=== PATIENT | female | born 1955 | race African-American/Black ===

== ENCOUNTER 2016-09-29 19:48 | Emergency (ER) | payer MEDICARE, MEDICAID ==
[~2016-09-29] VITALS: Ht 157.5 cm; Wt 52.0 kg
[~2016-09-29 19:48] MED LIST: ALBU2.5V13 NEB; AMLO5TAB4 PO; ATOR20TA65 PO; DOCU-150 PO; FLUT1DIS3 INH; LOSA50TA20 PO; MONT10TA21 PO; OMEP20TA80 PO; PROAIR INH; TIOT18CA3 INH; TOLT2CAP7 PO
[2016-09-29] MEDS ORDERED: ALBUTEROL (0.083%) 2.5MG/3ML NEB HHN STA (19:57)
[2016-09-29] MEDS ORDERED: METHYLPREDNISOLONE SOD SUCC 125 MG/2 ML VIAL IV STA (19:57)
[2016-09-29] MEDS ORDERED: IPRATROPIUM BROMIDE (0.02%) 0.5MG/2.5ML NEB HHN STA (19:57)
[2016-09-29] MEDS ORDERED: ALBUTEROL (0.5%) 2.5MG/0.5ML NEB HHN ONE (20:13)
[2016-09-29 21:22] LABS: BASOPHILS % 0.8 % (0.0-2.0); EOSINOPHILS % 7.2 % (0.0-5.0); HEMATOCRIT. 46.4 % (36.0-48.0); HEMOGLOBIN. 15.3 g/dL (12.0-16.0); LYMPHOCYTES % 51.6 % (20.0-50.0); MEAN CORPUSCULAR HEMOGLOBIN 28.9 pg (28.0-32.0); MEAN CORPUSCULAR VOLUME 87.5 fL (81.0-99.0); MEAN PLATELET VOLUME 8.4 fl (7.4-10.4); MONOCYTES % 4.4 % (2.0-8.0); PLATELET 348 x1000/uL (130-400); RED CELL DISTRIBUTION WIDTH 15.5 % (11.6-14.6); WHITE BLOOD COUNT 21.3 x1000/uL (4.5-11.0)
[2016-09-29 21:30] LABS: INR 1.1; PROTHROMBIN TIME 11.4 sec
[2016-09-29 21:38] LABS: ALANINE AMINOTRANSFERASE 25 IU/L (13-61); ALBUMIN 3.7 g/dL (3.4-5.0); ANION GAP 13; CALCIUM 8.7 mg/dL (8.5-10.1); CARBON DIOXIDE 25 mEq/L (21-32); CHLORIDE 108 mEq/L (98-107); INDEX HEMOLYSI 1 (1-3); INDEX ICTERIC 1 (1-4); INDEX LIPEMIC 1 (1-3); NT PRO B-TYPE NATRIURETIC PEP 978 pg/mL (5-125); TROPONIN I < 0.02 ng/mL (0.00-0.04); UREA NITROGEN BLOOD 10 mg/dL (7-21); eGFR > 60 mL/min (>60)
[2016-09-29 22:05] VITALS: BP 180/93
== END 2016-09-29 23:46 | disposition home or self-care (01) ==
LOC: ER 19:54
DX: J45.901 Unspecified asthma with (acute) exacerbation (principal); J44.9 Chronic obstructive pulmonary disease, unspecified; I10 Essential (primary) hypertension; Z88.0 Allergy status to penicillin
CPT/HCPCS: 36415; 71010; 80053; 83880; 84484; 85025; 85610; 93005; 94644; 96374; 99285; J2930; J7611

== ENCOUNTER 2016-11-06 15:31 | Inpatient (IN) | payer MEDICARE, MEDICAID ==
[~2016-11-06] VITALS: Ht 172.7 cm; Wt 59.0 kg
[2016-11-06] MEDS ORDERED: IPRATROPIUM BROMIDE (0.02%) 0.5MG/2.5ML NEB HHN STA (16:36)
[2016-11-06] MEDS ORDERED: ALBUTEROL (0.083%) 2.5MG/3ML NEB HHN STA (16:36)
[2016-11-06] MEDS ORDERED: ASPIRIN 81MG TABLET PO STA (16:36)
[2016-11-06] MEDS ORDERED: NITROGLYCERIN 0.4MG TABLET SL SL PRN (16:45)
[2016-11-06] MEDS ORDERED: MAGNESIUM 2 G PREMIX 50 ML IV ONE (16:45)
[2016-11-06] MEDS ORDERED: ALBUTEROL (0.5%) 2.5MG/0.5ML NEB HHN ONE ×2 (16:53→18:15)
[2016-11-06] MEDS ORDERED: IPRATROPIUM BROMIDE (0.02%) 0.5MG/2.5ML NEB ONE (16:54)
[2016-11-06] MEDS ORDERED: ALBUTEROL (0.083%) 2.5MG/3ML NEB ONE ×2 (16:54→18:23)
[2016-11-06 17:07] LABS: BASOPHILS % 1.3 % (0.0-2.0); HEMATOCRIT. 51.2 % (36.0-48.0); HEMOGLOBIN. 16.7 g/dL (12.0-16.0); LYMPHOCYTES % 37.5 % (20.0-50.0); MEAN CORPUSCULAR HEMOGLOBIN 28.5 pg (28.0-32.0); MEAN CORPUSCULAR HGB CONC 32.5 g/dL (31.0-37.0); MEAN CORPUSCULAR VOLUME 87.5 fL (81.0-99.0); MEAN PLATELET VOLUME 8.2 fl (7.4-10.4); NEUTROPHILS % 48.2 % (40.0-76.0); PLATELET 311 x1000/uL (130-400); RED BLOOD CELL COUNT 5.85 mill/uL (4.2-5.4); RED CELL DISTRIBUTION WIDTH 15.5 % (11.6-14.6); WHITE BLOOD COUNT 11.6 x1000/uL (4.5-11.0)
[2016-11-06 17:15] LABS: ALBUMIN 3.4 g/dL (3.4-5.0); ANION GAP 12; CALCIUM 9.7 mg/dL (8.5-10.1); CARBON DIOXIDE 28 mEq/L (21-32); CHLORIDE 108 mEq/L (98-107); INDEX HEMOLYSI 1 (1-3); INDEX ICTERIC 1 (1-4); INDEX LIPEMIC 1 (1-3); PARTIAL THROMBOPLASTIN TIME 26.4 sec (24.0-34.0); PROTHROMBIN TIME 10.9 sec; UREA NITROGEN BLOOD 16 mg/dL (7-21)
[2016-11-06 17:21] LABS: ALANINE AMINOTRANSFERASE 17 IU/L (13-61); eGFR > 60 mL/min (>60)
[2016-11-06 17:22] LABS: NT PRO B-TYPE NATRIURETIC PEP 881 pg/mL (5-125); TROPONIN I < 0.02 ng/mL (0.00-0.04)
[2016-11-06 18:10] LABS: BG BASE EXCESS -2.6 mmol/L (-2.0-2.0); BG CARBOXYHEMOGLOBIN 0.8 % (0.5-1.5); BG DEOXYHEMOGLOBIN 5.3 % (0.0-5.0); BG FRACTION INSPIRED OXYGEN 28; BG HCO3 ACT 21.9 mmol/L (22.0-26.0); BG METHEMOGLOBIN 0.3 % (0.0-1.5); BG OXYGEN SATURATION 94.6 % (92.0-98.5); BG OXYHEMOGLOBIN 93.6 % (94.0-97.0); BG PCO2 37.5 mmHg (35.0-45.0); BG PH 7.385 (7.350-7.450); BG PO2 69.7 mmHg (75.0-100.0); BG SAMPLE SITE RIGHT BRACHIAL; BG TOTAL HEMOGLOBIN 16.4 g/dL (12.0-18.0); BG VENT MODE NASAL CANNULA
[2016-11-06] MEDS ORDERED: METHYLPREDNISOLONE SOD SUCC 125 MG/2 ML VIAL IV STA (20:50)
[2016-11-06 22:00] VITALS: BP 181/133
[2016-11-06] MEDS ORDERED: ASPI325T2 PO (22:12)
[2016-11-06] MEDS ORDERED: CHOL100046 PO (22:12)
[2016-11-06] MEDS ORDERED: PRED5TAB48 PO (22:12)
[2016-11-06] MEDS ORDERED: ONDANSETRON HCL 4MG/2ML VIAL IV PRN (22:30)
[2016-11-06] MEDS ORDERED: MAGNESIUM/ALUMINUM HYDROXIDE/SIMETHICONE 30ML UDC PO PRN (22:30)
[2016-11-06] MEDS ORDERED: MAGNESIUM HYDROXIDE 400MG/5ML 30ML UDC PO PRN (22:30)
[2016-11-06] MEDS ORDERED: CLONIDINE 0.1MG TABLET PO PRN (22:30)
[2016-11-06] MEDS ORDERED: DIPHENHYDRAMINE 50MG/ML VIAL IV PRN (22:30)
[2016-11-06] MEDS ORDERED: IPRATROPIUM/ALBUTEROL 0.5-3(2.5)MG/3ML NEB INH PRN (22:30)
[2016-11-06] MEDS ORDERED: TEMAZEPAM 15MG CAPSULE PO PRN (22:30)
[2016-11-06] MEDS: METHYLPREDNISOLONE SOD SUCC 125 MG/2 ML VIAL IV SCH (22:54)
[2016-11-06] MEDS: ENOXAPARIN 40MG/0.4ML SYR SUBCUT SCH (22:54)
[2016-11-06 23:32] VITALS: BP 181/113
[2016-11-06] MEDS: ACETAMINOPHEN 325MG TABLET PO PRN (23:32)
[2016-11-07] VITALS: BP 120/85
[2016-11-07] MEDS: IPRATROPIUM/ALBUTEROL 0.5-3(2.5)MG/3ML NEB HHN SCH ×7 (00:06→23:23)
[2016-11-07 04:00] VITALS: BP 110/78
[2016-11-07] MEDS: SODIUM CHLORIDE 0.9% INJ 3ML FLUSH IVF SCH ×3 (05:30→21:51)
[2016-11-07] MEDS: ACETAMINOPHEN 325MG TABLET PO PRN ×2 (05:30→22:39)
[2016-11-07] MEDS: METHYLPREDNISOLONE SOD SUCC 125 MG/2 ML VIAL IV SCH (05:30)
[2016-11-07 08:00] VITALS: BP 138/102
[2016-11-07] MEDS ORDERED: GUAIFENESIN 600MG ER TABLET PO SCH (09:00)
[2016-11-07] MEDS: OXYBUTYNIN CHLORIDE 5MG TABLET PO SCH ×2 (09:07→20:48)
[2016-11-07] MEDS: AMLODIPINE 5MG TABLET PO SCH ×2 (09:07→20:49)
[2016-11-07 12:00] VITALS: BP 114/78
[2016-11-07] MEDS: PROMETHAZINE/DEXTROMETHORPHAN 6.25-15MG/5ML BOTTLE 120ML PO PRN ×2 (12:26→20:51)
[2016-11-07] MEDS ORDERED: NICOTINE 21MG PATCH TD NR (14:00)
[2016-11-07 16:00] VITALS: BP 118/83
[2016-11-07 16:38] LABS: T3 FREE 2.02 pg/ml (2.18-3.98); T4 FREE 1.16 ng/dL (0.76-1.46); THYROID STIMULATING HORMONE 0.25 uIU/mL (0.36-3.74)
[2016-11-07] MEDS: MONTELUKAST SODIUM 10MG TABLET PO SCH (16:57)
[2016-11-07 20:00] VITALS: BP 108/73
[2016-11-07] MEDS: ENOXAPARIN 40MG/0.4ML SYR SUBCUT SCH (20:49)
[2016-11-07] MEDS ORDERED: FAMOTIDINE 20MG TABLET PO SCH (21:00)
[2016-11-07] MEDS: BUDESONIDE 0.5MG/2ML NEB HHN SCH (23:23)
[2016-11-08] VITALS: BP 134/83
[2016-11-08 04:00] VITALS: BP 149/93
[2016-11-08] MEDS: IPRATROPIUM/ALBUTEROL 0.5-3(2.5)MG/3ML NEB HHN SCH ×4 (04:15→16:24)
[2016-11-08] MEDS: SODIUM CHLORIDE 0.9% INJ 3ML FLUSH IVF SCH ×2 (05:04→13:22)
[2016-11-08 08:00] VITALS: BP 134/84
[2016-11-08] MEDS ORDERED: NICOTINE 21MG PATCH TD SCH (09:00)
[2016-11-08] MEDS: OXYBUTYNIN CHLORIDE 5MG TABLET PO SCH (09:00)
[2016-11-08] MEDS: AMLODIPINE 5MG TABLET PO SCH (09:00)
[2016-11-08] MEDS: BUDESONIDE 0.5MG/2ML NEB HHN SCH (11:49)
[2016-11-08 12:00] VITALS: BP 132/87
[2016-11-08 15:56] VITALS: BP 129/85
[2016-11-08 16:00] VITALS: BP 129/85
[2016-11-08] MEDS: MONTELUKAST SODIUM 10MG TABLET PO SCH (16:46)
== END 2016-11-08 17:45 | disposition home or self-care (01) | DRG 189 ==
LOC: ER 16:42 → 5WST 18:39
PROVIDERS: ADMIT Internal Medicine; ATTEND Internal Medicine
DX: J96.00 Acute respiratory failure, unspecified whether with hypoxia or hypercapnia (principal); J44.1 Chronic obstructive pulmonary disease with (acute) exacerbation; I50.30 Unspecified diastolic (congestive) heart failure; E03.9 Hypothyroidism, unspecified; I11.0 Hypertensive heart disease with heart failure; K21.9 Gastro-esophageal reflux disease without esophagitis; N32.81 Overactive bladder; E78.00 Pure hypercholesterolemia, unspecified; F17.210 Nicotine dependence, cigarettes, uncomplicated; F41.9 Anxiety disorder, unspecified; Z82.5 Family history of asthma and other chronic lower respiratory diseases; Z86.73 Personal history of transient ischemic attack (TIA), and cerebral infarction without residual deficits; Z88.0 Allergy status to penicillin; Z79.899 Other long term (current) drug therapy
CPT/HCPCS: 36415; 71010; 80053; 82805; 83880; 84439; 84443; 84481; 84484; 85025; 85610; 85730; 93005; 94640; 94664; 96365; 99285; J1650; J2930; J3475; J7611; J7620; J7626

== ENCOUNTER 2018-01-25 00:14 | Emergency (ER) | payer MEDICARE, MEDICAID ==
[~2018-01-25] VITALS: Ht 167.6 cm; Wt 61.0 kg
[2018-01-25] MEDS ORDERED: KETOROLAC 60MG/2ML VIAL IM ONE (02:45)
[2018-01-25 16:35] VITALS: BP 135/82
== END 2018-01-25 19:09 | disposition home or self-care (01) ==
LOC: ER 00:14
DX: S80.02XA Contusion of left knee, initial encounter (principal); J44.9 Chronic obstructive pulmonary disease, unspecified; E78.00 Pure hypercholesterolemia, unspecified; I10 Essential (primary) hypertension; F17.200 Nicotine dependence, unspecified, uncomplicated; Z88.0 Allergy status to penicillin; W01.0XXA Fall on same level from slipping, tripping and stumbling without subsequent striking against object, initial encounter; Y93.89 Activity, other specified; Y92.89 Other specified places as the place of occurrence of the external cause; Y99.8 Other external cause status
CPT/HCPCS: 73564; 96372; 99284; J1885

== ENCOUNTER 2018-06-29 08:49 | Emergency (ER) | payer MEDICAID, MEDICARE ==
[~2018-06-29] VITALS: Ht 172.7 cm; Wt 57.0 kg
[2018-06-29] MEDS ORDERED: CYCL10TA7 MT (09:07)
[2018-06-29] MEDS ORDERED: spiriva (09:07)
[2018-06-29] MEDS ORDERED: albuterol (09:07)
[2018-06-29] MEDS ORDERED: symbicort (09:07)
[2018-06-29] MEDS ORDERED: proair (09:07)
[2018-06-29] MEDS ORDERED: eliquis (09:07)
[2018-06-29] MEDS ORDERED: norvasc (09:07)
[2018-06-29] MEDS ORDERED: IPRATROPIUM BROMIDE (0.02%) 0.5MG/2.5ML NEB HHN STA (09:34)
[2018-06-29] MEDS ORDERED: ALBUTEROL (0.083%) 2.5MG/3ML NEB HHN STA (09:34)
[2018-06-29] MEDS ORDERED: PREDNISONE 20MG TABLET PO STA (09:34)
[2018-06-29] MEDS ORDERED: HYDROCODONE/ACETAMINOPHEN 5/325MG TABLET PO ONE (10:00)
[2018-06-29] MEDS ORDERED: ONDANSETRON 4MG ODT PO ONE (10:00)
[2018-06-29 12:59] VITALS: BP 142/80
== END 2018-06-29 13:01 | disposition home or self-care (01) ==
LOC: ER 09:26
DX: J44.1 Chronic obstructive pulmonary disease with (acute) exacerbation (principal); S20.20XA Contusion of thorax, unspecified, initial encounter; E78.00 Pure hypercholesterolemia, unspecified; I11.0 Hypertensive heart disease with heart failure; I50.9 Heart failure, unspecified; F17.200 Nicotine dependence, unspecified, uncomplicated; F12.10 Cannabis abuse, uncomplicated; Z88.0 Allergy status to penicillin; W01.0XXA Fall on same level from slipping, tripping and stumbling without subsequent striking against object, initial encounter; Y93.89 Activity, other specified; Y92.018 Other place in single-family (private) house as the place of occurrence of the external cause
CPT/HCPCS: 71101; 93005; 94640; 99284; J7512; Q0162; J7611

== ENCOUNTER 2018-10-15 18:29 | Inpatient (IN) | payer MEDICARE, MEDICAID ==
[~2018-10-15] VITALS: Ht 200.7 cm; Wt 60.3 kg
[~2018-10-15 18:29] MED LIST changes: -ALBU2.5V13 NEB; -AMLO5TAB4 PO; -ATOR20TA65 PO; +CYCL10TA7 MT; -DOCU-150 PO; -FLUT1DIS3 INH; -LOSA50TA20 PO; -MONT10TA21 PO; -OMEP20TA80 PO; -PROAIR INH; -TIOT18CA3 INH; -TOLT2CAP7 PO; +albuterol; +eliquis; +norvasc; +proair; +spiriva; +symbicort
[2018-10-15] MEDS ORDERED: METHYLPREDNISOLONE SOD SUCC 125 MG/2 ML VIAL IV STA (19:06)
[2018-10-15] MEDS ORDERED: IPRATROPIUM/ALBUTEROL 0.5-3(2.5)MG/3ML NEB HHN ONE (19:15)
[2018-10-15] MEDS ORDERED: NITROGLYCERIN OINT 1GM/INCH UDPKT TD ONE (19:15)
[2018-10-15] MEDS ORDERED: FUROSEMIDE 40MG/4ML VIAL IV ONE (19:15)
[2018-10-15] MEDS ORDERED: LEVOFLOXACIN 750MG PREMIX 150 ML IV ONE (19:15)
[2018-10-15] MEDS ORDERED: ASPIRIN 81MG TABLET PO ONE (19:15)
[2018-10-15 20:28] LABS: BASOPHILS % 1.2 % (0.0-2.0); EOSINOPHILS % 6.6 % (0.0-5.0); HEMATOCRIT. 51.7 % (36.0-48.0); HEMOGLOBIN. 16.8 g/dL (12.0-16.0); MEAN CORPUSCULAR HEMOGLOBIN 28.9 pg (28.0-32.0); MEAN CORPUSCULAR VOLUME 88.8 fL (81.0-99.0); MEAN PLATELET VOLUME 8.7 fl (7.4-10.4); MONOCYTES % 6.7 % (2.0-8.0); NEUTROPHILS % 30.5 % (40.0-76.0); PLATELET 263 x1000/uL (130-400); RED BLOOD CELL COUNT 5.83 mill/uL (4.2-5.4); RED CELL DISTRIBUTION WIDTH 14.4 % (11.6-14.6)
[2018-10-15 20:33] LABS: CHLORIDE 107 mEq/L (98-107)
[2018-10-15 20:38] LABS: ETHANOL BLOOD < 10 mg/dL
[2018-10-15 21:27] LABS: BG BASE EXCESS 0.3 mmol/L (-2.0-2.0); BG BILEVEL POS AIRWAY PRESSURE 15/5; BG CARBOXYHEMOGLOBIN 0.9 % (0.5-1.5); BG FRACTION INSPIRED OXYGEN 50; BG HCO3 ACT 24.8 mmol/L (22.0-26.0); BG METHEMOGLOBIN 0.5 % (0.0-1.5); BG OXYHEMOGLOBIN 97.6 % (94.0-97.0); BG PCO2 39.6 mmHg (35.0-45.0); BG PH 7.414 (7.350-7.450); BG PO2 161.2 mmHg (75.0-100.0); BG SAMPLE SITE LEFT RADIAL; BG TOTAL HEMOGLOBIN 16.6 g/dL (12.0-18.0); BG VENT MODE MASK - BIPAP; BG VENT RATE 20 set
[2018-10-15] MEDS ORDERED: TEMAZEPAM 15MG CAPSULE PO PRN (22:30)
[2018-10-15] MEDS ORDERED: ACETAMINOPHEN 325MG TABLET PO PRN (22:30)
[2018-10-15] MEDS ORDERED: HYDRALAZINE 20MG/ML VIAL IV PRN (22:30)
[2018-10-15] MEDS ORDERED: DIPHENHYDRAMINE 50MG/ML VIAL IV PRN (22:30)
[2018-10-15] MEDS ORDERED: IPRATROPIUM/ALBUTEROL 0.5-3(2.5)MG/3ML NEB INH PRN (22:30)
[2018-10-15] MEDS ORDERED: LEVOFLOXACIN 500MG PREMIX 100 ML IV SCH (22:30)
[2018-10-15] MEDS ORDERED: GUAIFENESIN 200MG/10ML SUGAR FREE UDC PO PRN (22:30)
[2018-10-15] MEDS ORDERED: ONDANSETRON HCL 4MG/2ML INJ IV PRN (22:30)
[2018-10-15] MEDS ORDERED: MAGNESIUM/ALUMINUM HYDROXIDE/SIMETHICONE 30ML UDC PO PRN (22:30)
[2018-10-15] MEDS ORDERED: LORAZEPAM 0.5MG TABLET PO PRN (22:30)
[2018-10-15 23:50] LABS: PARTIAL THROMBOPLASTIN TIME 27.9 sec (23.4-31.0); PROTHROMBIN TIME 10.3 sec (9.6-11.0)
[2018-10-16] VITALS (13 sets, daily range): BP systolic 105–153; BP diastolic 55–100
[2018-10-16] MEDS ORDERED: SODIUM CHLORIDE 0.9% 1,000 ML IV NR (02:30)
[2018-10-16] MEDS: SODIUM CHLORIDE 0.9% INJ 3ML FLUSH IVF SCH ×3 (06:06→21:58)
[2018-10-16] MEDS: METHYLPREDNISOLONE SOD SUCC 125 MG/2 ML VIAL IV SCH ×2 (06:14→13:15)
[2018-10-16] MEDS: OMEPRAZOLE 20MG CAPSULE EXTENDED RELEASE PO SCH ×2 (07:56→21:58)
[2018-10-16] MEDS: IPRATROPIUM/ALBUTEROL 0.5-3(2.5)MG/3ML NEB HHN SCH ×4 (08:15→21:06)
[2018-10-16] MEDS: DOCUSATE SODIUM 100MG CAPSULE PO SCH ×2 (08:37→17:54)
[2018-10-16] MEDS: LOSARTAN POTASSIUM 50 MG TABLET PO SCH (08:37)
[2018-10-16] MEDS: GUAIFENESIN 600MG ER TABLET PO SCH ×2 (08:37→21:58)
[2018-10-16] MEDS: AMLODIPINE 10MG TABLET PO SCH (08:37)
[2018-10-16] MEDS: ENOXAPARIN 40MG/0.4ML SYR SUBCUT SCH (08:38)
[2018-10-16] MEDS: MONTELUKAST SODIUM 10MG TABLET PO SCH (17:54)
[2018-10-16] MEDS ORDERED: LEVOFLOXACIN 500MG PREMIX 100 ML IV SCH (21:00)
[2018-10-16] MEDS: METHYLPREDNISOLONE SOD SUCC 40 MG/ML VIAL IV SCH (21:58)
[2018-10-16 23:48] LABS: *AMPHETAMINES SCREEN URINE NEGATIVE (NEGATIVE); *BARBITURATES SCREEN URINE NEGATIVE (NEGATIVE); *BENZODIAZEPINES SCREEN URINE NEGATIVE (NEGATIVE); *COCAINE SCREEN URINE NEGATIVE (NEGATIVE)
[2018-10-16 23:49] LABS: METHADONE URINE SCREEN NEGATIVE (NEGATIVE); OPIATES URINE SCREEN NEGATIVE (NEGATIVE); PHENCYCLIDINE URINE SCREEN NEGATIVE (NEGATIVE)
[2018-10-16 23:51] LABS: CANNABINOID URINE SCREEN PRESUMTIVE POSITIVE (NEGATIVE)
[2018-10-17] VITALS (11 sets, daily range): BP systolic 98–126; BP diastolic 53–84
[2018-10-17] MEDS: IPRATROPIUM/ALBUTEROL 0.5-3(2.5)MG/3ML NEB HHN SCH ×5 (00:41→15:48)
[2018-10-17] MEDS: METHYLPREDNISOLONE SOD SUCC 40 MG/ML VIAL IV SCH ×2 (06:04→14:22)
[2018-10-17] MEDS: SODIUM CHLORIDE 0.9% INJ 3ML FLUSH IVF SCH ×2 (06:05→14:00)
[2018-10-17] MEDS: GUAIFENESIN 600MG ER TABLET PO SCH (08:29)
[2018-10-17] MEDS: LOSARTAN POTASSIUM 50 MG TABLET PO SCH (08:29)
[2018-10-17] MEDS: ENOXAPARIN 40MG/0.4ML SYR SUBCUT SCH (08:29)
[2018-10-17] MEDS: DOCUSATE SODIUM 100MG CAPSULE PO SCH ×2 (08:30→16:59)
[2018-10-17] MEDS: OMEPRAZOLE 20MG CAPSULE EXTENDED RELEASE PO SCH (08:30)
[2018-10-17] MEDS: AMLODIPINE 10MG TABLET PO SCH (08:31)
[2018-10-17] MEDS: MONTELUKAST SODIUM 10MG TABLET PO SCH (16:59)
[2018-10-17] MEDS ORDERED: LEVOFLOXACIN 500MG TABLET PO SCH (21:00)
== END 2018-10-17 09:15 | disposition home or self-care (01) | DRG 189 ==
LOC: ER 18:29 → 5EST 21:22 → EDBEDREQ 21:24 → EDBEDREQSVC 21:24 → EDBEDREQTM 21:24 → ENRESERV 21:45
PROVIDERS: ADMIT Internal Medicine; ATTEND Internal Medicine
PROC: 5A09357 Assistance with Respiratory Ventilation, Less than 24 Consecutive Hours, Continuous Positive Airway Pressure (ICD-10-PCS; principal; 2018-10-15)
DX: J96.00 Acute respiratory failure, unspecified whether with hypoxia or hypercapnia (principal); J44.0 Chronic obstructive pulmonary disease with (acute) lower respiratory infection; J44.1 Chronic obstructive pulmonary disease with (acute) exacerbation; I11.0 Hypertensive heart disease with heart failure; D72.1 Eosinophilia; E78.00 Pure hypercholesterolemia, unspecified; E78.5 Hyperlipidemia, unspecified; F17.210 Nicotine dependence, cigarettes, uncomplicated; F41.9 Anxiety disorder, unspecified; I50.9 Heart failure, unspecified; J20.9 Acute bronchitis, unspecified; Z86.718 Personal history of other venous thrombosis and embolism; Z86.73 Personal history of transient ischemic attack (TIA), and cerebral infarction without residual deficits; Z79.899 Other long term (current) drug therapy; Z88.0 Allergy status to penicillin; Z71.6 Tobacco abuse counseling
CPT/HCPCS: 36415; 36600; 71045; 80305; 80320; 82375; 82805; 83605; 83735; 83880; 84443; 84484; 93005; 93970; 94640; 94660; 96365; 96375; 99291; 99406; C1893; J1650; J1940; J1956; J2920; J2930; J7620; G0480

== ENCOUNTER 2019-05-18 18:22 | Inpatient (IN) | payer MEDICARE, MEDICAID ==
[~2019-05-18] VITALS: Ht 165.1 cm; Wt 80.3 kg
[2019-05-18 11:00] VITALS: BP 101/72
[~2019-05-18 18:22] MED LIST changes: +ALBU18HF2 IH; +ASPI325T85 PO; +BUDE6HFA INH; -CYCL10TA7 MT; +LOSA50TA41 PO; +LYR25 PO; -albuterol; -eliquis; -norvasc; -proair; -spiriva; -symbicort
[2019-05-18] MEDS ORDERED: METHYLPREDNISOLONE SOD SUCC 125 MG/2 ML VIAL IV STA (18:46)
[2019-05-18] MEDS ORDERED: IPRATROPIUM BROMIDE (0.02%) 0.5MG/2.5ML NEB HHN STA (18:46)
[2019-05-18] MEDS ORDERED: ALBUTEROL (0.083%) 2.5MG/3ML NEB HHN STA (18:46)
[2019-05-18 19:12] LABS: BASOPHILS % 0.2 % (0.0-2.0); EOSINOPHILS % 1.8 % (0.0-5.0); HEMATOCRIT. 47.1 % (36.0-48.0); HEMOGLOBIN. 15.7 g/dL (12.0-16.0); LYMPHOCYTES % 36.7 % (20.0-50.0); MEAN CORPUSCULAR HEMOGLOBIN 28.9 pg (28.0-32.0); MEAN PLATELET VOLUME 7.8 fl (7.4-10.4); NEUTROPHILS % 56.3 % (40.0-76.0); PLATELET 947 x1000/uL (130-400); RED BLOOD CELL COUNT 5.41 mill/uL (4.2-5.4); RED CELL DISTRIBUTION WIDTH 15.2 % (11.6-14.6)
[2019-05-18 19:17] LABS: CHLORIDE 103 mEq/L (98-107)
[2019-05-18] MEDS ORDERED: ASPIRIN 81MG TABLET PO ONE (20:00)
[2019-05-18] MEDS ORDERED: KETOROLAC 30MG/ML VIAL IV ONE (20:00)
[2019-05-18] MEDS ORDERED: MORPHINE SULFATE 2 MG/ML CPJ (NOT FOR IM USE) IV ONE (20:00)
[2019-05-18] MEDS ORDERED: SODIUM CHLORIDE 0.9% 1,000 ML IV ONE (20:30)
[2019-05-18] MEDS ORDERED: ALBUTEROL (0.5%) 2.5MG/0.5ML NEB HHN ONE (21:15)
[2019-05-18] MEDS ORDERED: MAGNESIUM HYDROXIDE 400MG/5ML 30ML UDC PO PRN (21:45)
[2019-05-18] MEDS ORDERED: ONDANSETRON HCL 4MG/2ML INJ IV PRN (21:45)
[2019-05-18] MEDS ORDERED: PROMETHAZINE/DEXTROMETHORPHAN 6.25-15MG/5ML BOTTLE 120ML PO PRN (21:45)
[2019-05-18] MEDS ORDERED: DIPHENHYDRAMINE 50MG/ML VIAL IV PRN (21:45)
[2019-05-18] MEDS ORDERED: LORAZEPAM 0.5MG TABLET PO PRN (21:45)
[2019-05-18] MEDS ORDERED: ACETAMINOPHEN 325MG TABLET PO PRN (21:45)
[2019-05-18] MEDS ORDERED: MAGNESIUM/ALUMINUM HYDROXIDE/SIMETHICONE 30ML UDC PO PRN (21:45)
[2019-05-18] MEDS ORDERED: IPRATROPIUM/ALBUTEROL 0.5-3(2.5)MG/3ML NEB NEB PRN (21:45)
[2019-05-18 23:53] VITALS: BP 101/72
[2019-05-19] VITALS: BP 101/72
[2019-05-19 00:45] LABS: BG FRACTION INSPIRED OXYGEN 28; BG HCO3 ACT 21.9 mmol/L (22.0-26.0); BG METHEMOGLOBIN 0.2 % (0.0-1.5); BG OXYGEN SATURATION 93.9 % (92.0-98.5); BG OXYHEMOGLOBIN 92.8 % (94.0-97.0); BG PCO2 38.4 mmHg (35.0-45.0); BG PH 7.373 (7.350-7.450); BG PO2 70.4 mmHg (75.0-100.0); BG SAMPLE SITE RIGHT RADIAL; BG TOTAL HEMOGLOBIN 14.6 g/dL (12.0-18.0); BG VENT MODE NASAL CANNULA
[2019-05-19] MEDS ORDERED: POTASSIUM CHLORIDE 20MEQ TABLET SR PO NR (00:57)
[2019-05-19] MEDS: SODIUM CHLORIDE 0.9% INJ 3ML FLUSH IVF SCH ×4 (01:42→21:38)
[2019-05-19] MEDS ORDERED: LEVOFLOXACIN 500MG PREMIX 100 ML IV SCH (03:00)
[2019-05-19 04:00] VITALS: BP_SYST 110; BP_SYST 116; BP_DIAS 71; BP_DIAS 72
[2019-05-19] MEDS: IPRATROPIUM/ALBUTEROL 0.5-3(2.5)MG/3ML NEB HHN SCH ×5 (05:41→21:01)
[2019-05-19] MEDS: METHYLPREDNISOLONE SOD SUCC 125 MG/2 ML VIAL IV SCH ×3 (06:28→21:37)
[2019-05-19 07:48] LABS: CHLORIDE 104 mEq/L (98-107)
[2019-05-19 08:00] VITALS: BP 127/70
[2019-05-19] MEDS: LOSARTAN POTASSIUM 50 MG TABLET PO SCH (09:38)
[2019-05-19] MEDS: GUAIFENESIN 600MG ER TABLET PO SCH ×2 (09:38→21:38)
[2019-05-19] MEDS: DOCUSATE SODIUM 100MG CAPSULE PO SCH ×2 (09:38→16:34)
[2019-05-19] MEDS: ENOXAPARIN 40MG/0.4ML SYR SUBCUT SCH (09:39)
[2019-05-19] MEDS: OMEPRAZOLE 20MG CAPSULE EXTENDED RELEASE PO SCH (09:39)
[2019-05-19 12:00] VITALS: BP 127/74
[2019-05-19 16:00] VITALS: BP 122/69
[2019-05-19] MEDS ORDERED: DEXTROSE 50% WATER 50ML SYRINGE IV PRN (16:00)
[2019-05-19] MEDS: MONTELUKAST SODIUM 10MG TABLET PO SCH (16:34)
[2019-05-19] MEDS: HYDROCODONE/ACETAMINOPHEN 5/325MG TABLET PO PRN ×2 (17:07→21:43)
[2019-05-19] MEDS: BLOOD SUGAR DIAGNOSTIC STRIP TEST SCH ×2 (17:36→21:38)
[2019-05-19] MEDS: INSULIN LISPRO 100 UNITS/ML SUBCUT SCH ×2 (18:23→21:00)
[2019-05-19 20:00] VITALS: BP 119/66
[2019-05-20] VITALS (8 sets, daily range): BP systolic 123–132; BP diastolic 67–81
[2019-05-20] MEDS: IPRATROPIUM/ALBUTEROL 0.5-3(2.5)MG/3ML NEB HHN SCH ×6 (00:39→21:14)
[2019-05-20] MEDS: LEVOFLOXACIN 500MG PREMIX 100 ML IV SCH (01:30)
[2019-05-20] MEDS: TEMAZEPAM 15MG CAPSULE PO PRN (01:43)
[2019-05-20] MEDS: METHYLPREDNISOLONE SOD SUCC 125 MG/2 ML VIAL IV SCH ×3 (06:23→21:15)
[2019-05-20] MEDS: SODIUM CHLORIDE 0.9% INJ 3ML FLUSH IVF SCH ×3 (06:23→21:17)
[2019-05-20] MEDS: OMEPRAZOLE 20MG CAPSULE EXTENDED RELEASE PO SCH (06:24)
[2019-05-20] MEDS: BLOOD SUGAR DIAGNOSTIC STRIP TEST SCH ×4 (06:24→21:15)
[2019-05-20 07:15] LABS: BASOPHILS % 0.1 % (0.0-2.0); HEMATOCRIT. 39.2 % (36.0-48.0); LYMPHOCYTES % 8.9 % (20.0-50.0); MEAN CORPUSCULAR HEMOGLOBIN 28.8 pg (28.0-32.0); MEAN PLATELET VOLUME 7.6 fl (7.4-10.4); MONOCYTES % 3.5 % (2.0-8.0); NEUTROPHILS % 87.5 % (40.0-76.0); PLATELET 842 x1000/uL (130-400); RED BLOOD CELL COUNT 4.51 mill/uL (4.2-5.4); RED CELL DISTRIBUTION WIDTH 14.9 % (11.6-14.6)
[2019-05-20 07:27] LABS: CHLORIDE 106 mEq/L (98-107)
[2019-05-20 07:42] LABS: PHOSPHORUS 2.6 mg/dL (2.5-4.9)
[2019-05-20] MEDS: INSULIN LISPRO 100 UNITS/ML SUBCUT SCH ×4 (07:50→21:16)
[2019-05-20] MEDS: GUAIFENESIN 600MG ER TABLET PO SCH ×2 (09:34→21:15)
[2019-05-20] MEDS: DOCUSATE SODIUM 100MG CAPSULE PO SCH ×2 (09:35→19:26)
[2019-05-20] MEDS: LOSARTAN POTASSIUM 50 MG TABLET PO SCH (09:35)
[2019-05-20] MEDS: ENOXAPARIN 40MG/0.4ML SYR SUBCUT SCH (09:42)
[2019-05-20] MEDS: HYDROCODONE/ACETAMINOPHEN 5/325MG TABLET PO PRN ×2 (09:49→18:55)
[2019-05-20] MEDS ORDERED: BARIUM SULFATE 450ML ORAL SUSP ONE (16:40)
[2019-05-20] MEDS: MONTELUKAST SODIUM 10MG TABLET PO SCH (19:26)
[2019-05-20] MEDS: FAMOTIDINE 20MG TABLET PO SCH (21:15)
[2019-05-21] VITALS (7 sets, daily range): BP systolic 126–145; BP diastolic 64–80
[2019-05-21] MEDS: IPRATROPIUM/ALBUTEROL 0.5-3(2.5)MG/3ML NEB HHN SCH ×4 (01:15→11:57)
[2019-05-21] MEDS: TEMAZEPAM 15MG CAPSULE PO PRN (02:12)
[2019-05-21] MEDS: LEVOFLOXACIN 500MG PREMIX 100 ML IV SCH (02:13)
[2019-05-21] MEDS: BLOOD SUGAR DIAGNOSTIC STRIP TEST SCH ×2 (06:09→12:20)
[2019-05-21] MEDS: SODIUM CHLORIDE 0.9% INJ 3ML FLUSH IVF SCH ×2 (06:09→14:00)
[2019-05-21] MEDS: METHYLPREDNISOLONE SOD SUCC 125 MG/2 ML VIAL IV SCH ×2 (06:09→14:00)
[2019-05-21] MEDS: INSULIN LISPRO 100 UNITS/ML SUBCUT SCH ×2 (06:10→12:50)
[2019-05-21 06:50] LABS: *AMPHETAMINES SCREEN URINE NEGATIVE (NEGATIVE); *BARBITURATES SCREEN URINE NEGATIVE (NEGATIVE); *BENZODIAZEPINES SCREEN URINE NEGATIVE (NEGATIVE); *COCAINE SCREEN URINE PRESUMTIVE POSITIVE (NEGATIVE); CANNABINOID URINE SCREEN PRESUMTIVE POSITIVE (NEGATIVE); METHADONE URINE SCREEN NEGATIVE (NEGATIVE); OPIATES URINE SCREEN PRESUMTIVE POSITIVE (NEGATIVE); PHENCYCLIDINE URINE SCREEN NEGATIVE (NEGATIVE)
[2019-05-21] MEDS: GUAIFENESIN 600MG ER TABLET PO SCH (09:39)
[2019-05-21] MEDS: DOCUSATE SODIUM 100MG CAPSULE PO SCH (09:39)
[2019-05-21] MEDS: FAMOTIDINE 20MG TABLET PO SCH (09:39)
[2019-05-21] MEDS: LOSARTAN POTASSIUM 50 MG TABLET PO SCH (09:40)
[2019-05-21] MEDS: ENOXAPARIN 40MG/0.4ML SYR SUBCUT SCH (09:40)
[2019-05-21] MEDS: HYDROCODONE/ACETAMINOPHEN 5/325MG TABLET PO PRN ×2 (16:26→16:28)
== END 2019-05-21 17:18 | disposition home or self-care (01) | DRG 193 ==
LOC: ER 18:22 → 6WST 20:17 → EDBEDREQTM 20:20 → EDBEDREQ 20:20 → ENRESERV 22:11
PROVIDERS: ADMIT Internal Medicine; ATTEND Internal Medicine
DX: J18.9 Pneumonia, unspecified organism (principal); J96.90 Respiratory failure, unspecified, unspecified whether with hypoxia or hypercapnia; R65.11 Systemic inflammatory response syndrome (SIRS) of non-infectious origin with acute organ dysfunction; J44.0 Chronic obstructive pulmonary disease with (acute) lower respiratory infection; J44.1 Chronic obstructive pulmonary disease with (acute) exacerbation; E78.00 Pure hypercholesterolemia, unspecified; F17.200 Nicotine dependence, unspecified, uncomplicated; I10 Essential (primary) hypertension; J20.9 Acute bronchitis, unspecified; Z86.73 Personal history of transient ischemic attack (TIA), and cerebral infarction without residual deficits; Z88.0 Allergy status to penicillin; Z79.82 Long term (current) use of aspirin; Z79.899 Other long term (current) drug therapy
CPT/HCPCS: 36415; 36600; 71045; 71250; 80048; 80305; 82375; 82805; 82962; 83036; 83735; 83880; 84100; 84484; 93005; 93970; 94640; 99291; J1650; J1815; J1956; J2930; J7611; J7620